=== PATIENT | male | born 1995 | race Native Hawaiian/Other Pacific Islander ===

== ENCOUNTER 2018-07-01 13:26 | Outpatient (CLI) | payer OTHER | END 2018-07-01 20:10 | disposition home or self-care (01) | LOC: MRI 13:26 | DX: M54.12 Radiculopathy, cervical region (principal) ==

== ENCOUNTER 2019-08-30 15:29 | Outpatient (CLI) | payer OTHER | END 2019-08-30 15:32 | disposition short-term general hospital (02) | LOC: AMB 15:29 | DX: R07.89 Other chest pain (principal); M25.512 Pain in left shoulder; V89.2XXA Person injured in unspecified motor-vehicle accident, traffic, initial encounter; Y92.89 Other specified places as the place of occurrence of the external cause | CPT/HCPCS: A0425; A0427 ==

== ENCOUNTER 2019-08-30 15:36 | Emergency (ER) | payer OTHER ==
[~2019-08-30] VITALS: Ht 182.9 cm; Wt 86.2 kg
[2019-08-30 16:09] LABS: PLATELET COUNT 266 K/uL (142-355)
[2019-08-30 16:16] LABS: POTASSIUM 3.4 mmol/L (3.6-5.2)
[2019-08-30 20:15] VITALS: BP 116/52; TEMP 97.8
== END 2019-08-30 20:15 | disposition short-term general hospital (02) ==
LOC: ED 15:36
PROVIDERS: Family Medicine
DX: S22.42XA Multiple fractures of ribs, left side, initial encounter for closed fracture (principal); S27.0XXA Traumatic pneumothorax, initial encounter; V89.2XXA Person injured in unspecified motor-vehicle accident, traffic, initial encounter
CPT/HCPCS: 80053; 85027; 96374; 96375; 96376; 99284; J2175; J2550

== ENCOUNTER 2019-09-20 14:56 | Outpatient (CLI) | payer OTHER | END 2019-09-20 17:00 | disposition home or self-care (01) | LOC: RAD 14:56 | DX: R06.02 Shortness of breath (principal); J93.9 Pneumothorax, unspecified ==

== ENCOUNTER 2019-12-25 19:12 | Emergency (ER) | payer OTHER ==
[~2019-12-25] VITALS: Ht 182.9 cm; Wt 86.2 kg
[2019-12-25 19:12] VITALS: BP 134/71; TEMP 98.1
[2019-12-25 20:06] LABS: PLATELET COUNT 225 K/uL (142-355)
[2019-12-25 20:16] LABS: POTASSIUM 4.4 mmol/L (3.6-5.2)
[2019-12-26] MEDS ORDERED: LEXAPRO10 MG PO (11:39)
[2019-12-26] MEDS ORDERED: STRATTERA60 MG PO (11:39)
[2019-12-26] MEDS ORDERED: ABILIFY2 MG PO (11:40)
== END 2019-12-27 18:10 | disposition other institution (70) ==
LOC: ED 19:14
PROVIDERS: Hospitalist
DX: F25.8 Other schizoaffective disorders (principal); F19.10 Other psychoactive substance abuse, uncomplicated; Z91.19 Patient's noncompliance with other medical treatment and regimen
CPT/HCPCS: 36415; 80053; 80307; 80320; 80329; 81000; 85027; 93005; 96372; 99285; J1200; J1630; J2060

== ENCOUNTER 2020-05-04 13:45 | Outpatient (CLI) | payer OTHER ==
[~2020-05-04 13:45] MED LIST: ABILIFY2 MG PO; LEXAPRO10 MG PO; STRATTERA60 MG PO
== END 2020-05-04 20:50 | disposition home or self-care (01) ==
LOC: MRI 13:45
DX: M54.2 Cervicalgia (principal)

== ENCOUNTER 2020-12-14 12:00 | Outpatient (CLI) | payer OTHER | END 2020-12-14 19:26 | disposition home or self-care (01) | LOC: LAB 12:00 | PROVIDERS: ATTEND Nurse Practitioner Family | DX: Z20.2 Contact with and (suspected) exposure to infections with a predominantly sexual mode of transmission (principal) | CPT/HCPCS: 87490 ==

== ENCOUNTER 2021-03-01 10:36 | Outpatient (CLI) | payer OTHER | END 2021-03-01 23:59 | disposition home or self-care (01) | LOC: US 10:36 | PROVIDERS: ATTEND Nurse Practitioner | DX: R10.11 Right upper quadrant pain (principal) ==

== ENCOUNTER 2021-03-29 08:05 | Outpatient (CLI) | payer OTHER | END 2021-03-29 22:49 | disposition home or self-care (01) | LOC: NM 08:05 | PROVIDERS: ATTEND Nurse Practitioner | DX: R10.11 Right upper quadrant pain (principal) | CPT/HCPCS: A9537 ==

== ENCOUNTER 2021-04-10 17:49 | Emergency (ER) | payer OTHER ==
[~2021-04-10] VITALS: Ht 182.9 cm; Wt 90.7 kg
[2021-04-10 19:42] VITALS: BP 130/90; TEMP 98.9
== END 2021-04-10 19:42 | disposition home or self-care (01) ==
LOC: ED 17:49
DX: H10.412 Chronic giant papillary conjunctivitis, left eye (principal)
CPT/HCPCS: 99283